=== PATIENT | male | born 1985 | race Two or more races ===

== ENCOUNTER 2022-03-10 20:16 | Emergency (ER) | payer OTHER ==
[~2022-03-10] VITALS: Ht 175.3 cm; Wt 81.0 kg
[2022-03-10] MEDS ORDERED: CYCLOBENZAPRINE10 MG PO (22:28)
--- NOTE | 2022-03-14 20:47 | EKG ---
[facility] [address] [facility] [place] [address] Signed Normal sinus rhythm Normal ECG No previous ECGs available Confirmed by Zenobia Yeung MD () on 03/14/2022 8:47:28 PM Electronically Signed By: ZENOBIA YEUNG MD 03/14/222046 PATIENT NAME: CARLIE RAZA Electrocardiogram DATE OF : 81 PHYSICIAN: ZENOBIA YEUNG MD REPORT #: [id number] REPORT IS CONFIDENTIAL AND NOT TO BE RELEASED WITHOUT AUTHORIZATION
== END 2022-03-10 22:46 | disposition home or self-care (01) ==
LOC: ED 20:16
DX: R07.89 Other chest pain (principal); R06.02 Shortness of breath
CPT/HCPCS: 36415; 71045; 80053; 83735; 84484; 85025; 85379; 85610; 93005; 93010; 99285-25

== ENCOUNTER 2023-04-07 15:47 | Emergency (ER) | payer OTHER ==
[~2023-04-07] VITALS: Ht 175.3 cm; Wt 84.7 kg
[~2023-04-07 15:47] MED LIST: CYCLOBENZAPRINE10 MG PO
--- OUTSIDE RECORDS SUMMARY | 2023-04-07 15:55 | XMS ---
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 [place] VISIT COUNT (12 MO.) 2 [facility] TOTAL 2 NOTE: Visits indicate total known visits. ED/C VISIT TRACKING (12 MO.) 04/07/2023 15:48 [facility] [place] TYPE: Emergency COMPLAINT: - LEFT ANKLE PAIN 03/30/2023 08:39 [facility] [place] TYPE: Emergency COMPLAINT: - L FOOT INJURY DIAGNOSES: - Contusion of left foot, initial encounter - Fall on and from ladder, initial encounter INPATIENT VISIT TRACKING (12 MO.) No inpatient visits to display in this time frame [id number]
[2023-04-07] MEDS ORDERED: NAPROSYN500 MG PO (16:27)
[2023-04-07 16:40] VITALS: BP 131/87
== END 2023-04-07 16:40 | disposition home or self-care (01) ==
LOC: ED 15:47
DX: S93.402A Sprain of unspecified ligament of left ankle, initial encounter (principal); W11.XXXA Fall on and from ladder, initial encounter
CPT/HCPCS: 73610

== ENCOUNTER 2024-11-11 12:34 | Emergency (ER) | payer OTHER ==
[~2024-11-11] VITALS: Ht 175.3 cm; Wt 81.0 kg
[~2024-11-11 12:34] MED LIST changes: +NAPROSYN500 MG PO
[2024-11-11] MEDS ORDERED: MORPHINE SULFATE 4 MG/ML VIAL IV ONE ×2 (12:45→14:15)
[2024-11-11] MEDS ORDERED: ondansetron HCL 4 MG/2 ML VIAL IV ONE (12:45)
[2024-11-11] MEDS ORDERED: DIPHTH,PERTUSS(ACELL),TET VAC 0.5 ML SYRINGE IM ONE (12:45)
[2024-11-11 12:46] LABS: BASOPHILS 0.6 % (0.2-1.2); EOSINOPHILS 1.4 % (0.8-7.0); HEMATOCRIT 44.2 % (40.1-51.0); HEMOGLOBIN 15.4 g/dL (13.7-17.5); LYMPHOCYTES 33.9 % (21.8-53.1); MCHC 34.8 g/dL (32.3-36.5); MCV 86.2 fL (79.0-92.2); MONOCYTES 6.5 % (5.3-12.2); NEUTROPHILS 57.2 % (34.0-67.9); PLATELET COUNT 261 K/uL (163-337); RBC 5.13 M/uL (4.63-6.08)
[2024-11-11 13:00] LABS: ALBUMIN 4.2 g/dL (3.4-5.0); ALBUMIN/GLOBULIN RATIO 1.27 (1.1-2.4); ALCOHOL, MEDICAL <3 ng/dL (<3); ALKALINE PHOSPHATASE 83 U/L (46-116); ALT (SGPT) 35 U/L (14-59); ANION GAP 13.6 (7-21); AST (SGOT) 24 U/L (15-37); BUN/CREATININE RATIO 13.33 (6.0-28.6); CALCIUM 8.8 mg/dL (8.5-10.1); CARBON DIOXIDE 26 mmol/L (21-32); CHLORIDE 107 mmol/L (98-107); GLOMERULAR FILTRATION RATE,EST 110 mL/min (>60); POTASSIUM 3.6 mmol/L (3.5-5.1); PROTEIN, TOTAL 7.5 g/dL (6.4-8.2); UREA NITROGEN 12 mg/dL (7-18)
[2024-11-11] MEDS ORDERED: LIDOCAINE/RACEPINEP/TETRACAINE 3 ML SYR TOP ONE (14:00)
[2024-11-11] MEDS ORDERED: HYDROmorphone HCL 1 MG/ML SYR IV ONE (15:00)
[2024-11-11] MEDS ORDERED: ONDANSETRON ODT4 MG PO (16:23)
[2024-11-11] MEDS ORDERED: COLACE100 MG PO (16:23)
[2024-11-11] MEDS ORDERED: IBU600 MG PO (16:23)
[2024-11-11] MEDS ORDERED: PERCOCET 5-3251 EACH PO (16:23)
[2024-11-11] MEDS ORDERED: OXYCODONE/APAP 5/325 TAB PO ONE (16:30)
[2024-11-11 16:43] VITALS: BP 132/72
== END 2024-11-11 16:45 | disposition home or self-care (01) ==
LOC: ED 12:34
PROVIDERS: Emergency Medicine
DX: S22.42XA Multiple fractures of ribs, left side, initial encounter for closed fracture (principal); S01.81XA Laceration without foreign body of other part of head, initial encounter; S70.02XA Contusion of left hip, initial encounter; S70.212A Abrasion, left hip, initial encounter; W11.XXXA Fall on and from ladder, initial encounter
CPT/HCPCS: 12002; 36415; 70450; 71260; 72125; 73110; 74177; 80053; 85025; 90471; 90715; 94799; 99284-25; G0480; J1171; J2270; J2405; Q9967

== ENCOUNTER 2024-11-21 10:05 | Emergency (ER) | payer OTHER ==
[~2024-11-21] VITALS: Ht 175.3 cm; Wt 81.0 kg
[~2024-11-21 10:05] MED LIST changes: +COLACE100 MG PO; +IBU600 MG PO; +ONDANSETRON ODT4 MG PO; +PERCOCET 5-3251 EACH PO
--- OUTSIDE RECORDS SUMMARY | 2024-11-21 10:12 | XMS ---
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 E.D. VISIT COUNT (12 MO.) [address] [facility] TOTAL 3 NOTE: Visits indicate total known visits. ED/UCC VISIT TRACKING (12 MO.) 11/21/2024 10:05 [facility] [place] TYPE: Emergency COMPLAINT: - SUTURE REMOVAL 11/17/2024 14:51 [facility] [place] TYPE: Emergency COMPLAINT: - REMOVAL OF STITCHES 11/11/2024 12:[address] [facility] [place] TYPE: Emergency COMPLAINT: - TRAUMA DIAGNOSES: - Abrasion, left hip, initial encounter - Contusion of left hip, initial encounter - Fall on and from ladder, initial encounter - Laceration without foreign body of other part of head, initial encounter - Multiple fractures of ribs, left side, initial encounter for closed fracture - Pain in left hip INPATIENT VISIT TRACKING (12 MO.) No inpatient visits to display in this time frame [id number]
[2024-11-21 10:49] VITALS: BP 145/67
== END 2024-11-21 10:51 | disposition home or self-care (01) ==
LOC: ED 10:05
DX: S01.81XD Laceration without foreign body of other part of head, subsequent encounter (principal); Z48.02 Encounter for removal of sutures; S22.41XD Multiple fractures of ribs, right side, subsequent encounter for fracture with routine healing; W11.XXXD Fall on and from ladder, subsequent encounter
CPT/HCPCS: 99283